=== PATIENT | male | born 1990 | race African-American/Black ===

== ENCOUNTER → 2021-05-01 | Outpatient (CLI) | payer BC | LOC: M SLEEP 20:00 | PROVIDERS: ATTEND Physician Assistant | DX: G47.33 Obstructive sleep apnea (adult) (pediatric) (principal) ==

== ENCOUNTER → 2022-04-27 | Outpatient (CLI) | payer BC | LOC: M PLAIMG 10:34 | PROVIDERS: ATTEND Internal Medicine Pulmonary Disease | DX: G47.33 Obstructive sleep apnea (adult) (pediatric) (principal) ==